=== PATIENT | male | born 1955 | race Caucasian/White ===

== ENCOUNTER 2018-07-28 09:26 | Outpatient (REF) | payer OTHER, SELFPAY ==
[2018-07-28 14:07] LABS: TSH (W/Ref FT4) 2.71 uIU/mL (0.358-3.74)
[2018-07-29 12:30] LABS: Hepatitis C Ab w Rflx HCV PCR Negative (NEGAT)
== END 2018-07-28 09:46 ==
LOC: NCHCN 09:26
PROVIDERS: Visit Provider Nurse Practitioner Family
DX: Z00.00 Encounter for general adult medical examination without abnormal findings (principal); M10.9 Gout, unspecified; R13.10 Dysphagia, unspecified; R42 Dizziness and giddiness; G47.62 Sleep related leg cramps; G47.00 Insomnia, unspecified; E66.9 Obesity, unspecified; M54.5 Low back pain; Z11.59 Encounter for screening for other viral diseases
CPT/HCPCS: 86803; 84443; 84550

== ENCOUNTER 2019-05-29 11:19 | Outpatient (REF) | payer OTHER, SELFPAY ==
[2019-05-29 13:38] LABS: ALT 38 U/L (16-63); AST 22 U/L (15-37); Alkaline Phosphatase 77 U/L (46-116); Anion Gap 8.1 mmol/L (3-11); BUN 17 mg/dL (7-18); Bilirubin, Total 0.3 mg/dL (0.2-1.0); CO2 27.9 mmol/L (21.0-32.0); CREATININE 0.94 mg/dL (0.70-1.30); Chloride 106 mmol/L (98-107); Glucose 112 mg/dL (70-100); Potassium 4.4 mmol/L (3.5-5.1); Sodium 142 mmol/L (136-145); TSH (W/Ref FT4) 2.99 uIU/mL (0.36-3.74); Total Protein 7.1 g/dL (6.4-8.2)
[2019-05-29 14:19] LABS: Calculated LDL 182 mg/dL; Cholesterol 260 mg/dL (50-200); HDL Cholesterol 41 mg/dL (40-60); Triglyceride 186 mg/dL (30-150)
== END 2019-05-29 11:39 ==
LOC: NCHCN 11:19
PROVIDERS: PCP Nurse Practitioner Family; Visit Provider Nurse Practitioner Family
DX: I10 Essential (primary) hypertension (principal); R94.6 Abnormal results of thyroid function studies; M10.9 Gout, unspecified
CPT/HCPCS: 80053; 80061; 84443; 84550

== ENCOUNTER 2020-12-12 18:46 | Outpatient (REF) | payer OTHER, SELFPAY ==
[2020-12-12 15:07] LABS: BUN 16 mg/dL (7-18); Calculated LDL 174 mg/dL (<100); Chloride 105 mmol/L (98-107); Cholesterol 224 mg/dL (<200); Glucose 104 mg/dL (74-106); HDL Cholesterol 38 mg/dL (40-60); Potassium 4.3 mmol/L (3.5-5.1); Sodium 142 mmol/L (136-145); TSH (W/Ref FT4) 2.77 uIU/mL (0.36-3.74); Triglyceride 60 mg/dL (<150)
[2020-12-12 18:12] LABS: Uric Acid 5.6 mg/dL (3.5-7.2)
== END 2020-12-12 18:47 | disposition home or self-care (01) ==
LOC: NCHCN 18:46
PROVIDERS: PCP Nurse Practitioner Family; Visit Provider Nurse Practitioner Family
DX: I10 Essential (primary) hypertension (principal); E66.9 Obesity, unspecified; R94.6 Abnormal results of thyroid function studies; M54.5 Low back pain; D12.6 Benign neoplasm of colon, unspecified; E78.5 Hyperlipidemia, unspecified; M10.9 Gout, unspecified; M19.90 Unspecified osteoarthritis, unspecified site
CPT/HCPCS: 80048; 80061; 84443; 84550

== ENCOUNTER 2021-12-08 11:21 | Outpatient (REF) | payer OTHER, SELFPAY ==
[2021-12-08 14:30] LABS: Anion Gap 8.8 mmol/L (3-11); BUN 18 mg/dL (7-18); CO2 25.2 mmol/L (21.0-32.0); CREATININE 1.1 mg/dL (0.70-1.30); Calcium 8.7 mg/dL (8.5-10.1); Calculated LDL 206 mg/dL (<100); Chloride 104 mmol/L (98-107); Cholesterol 270 mg/dL (<200); Glucose 94 mg/dL (74-106); HDL Cholesterol 44 mg/dL (40-60); Potassium 4.2 mmol/L (3.5-5.1); Sodium 138 mmol/L (136-145); TSH (W/Ref FT4) 3.85 uIU/mL (0.36-3.74); Triglyceride 103 mg/dL (<150)
[2021-12-08 14:51] LABS: FREE T4 0.91 ng/dL (0.76-1.46); Uric Acid 6.3 mg/dL (3.5-7.2)
== END 2021-12-08 11:22 | disposition home or self-care (01) ==
LOC: NCHCN 11:21
PROVIDERS: PCP Nurse Practitioner Family; Visit Provider Nurse Practitioner Family
DX: I10 Essential (primary) hypertension (principal); R94.6 Abnormal results of thyroid function studies; Z00.00 Encounter for general adult medical examination without abnormal findings; R20.0 Anesthesia of skin; K30 Functional dyspepsia; R42 Dizziness and giddiness; M10.9 Gout, unspecified; E78.5 Hyperlipidemia, unspecified
CPT/HCPCS: 80048; 80061; 84439; 84443; 84550

== ENCOUNTER 2022-06-15 14:55 | Outpatient (REF) | payer OTHER, SELFPAY ==
[2022-06-15 15:13] LABS: Calculated LDL 198 mg/dL (<100); Cholesterol 255 mg/dL (<200); HDL Cholesterol 44 mg/dL (40-60); Triglyceride 67 mg/dL (<150)
== END 2022-06-15 14:56 | disposition home or self-care (01) ==
LOC: NCHCN 14:55
PROVIDERS: PCP Nurse Practitioner Family; Visit Provider Nurse Practitioner Family
DX: I10 Essential (primary) hypertension (principal); E78.5 Hyperlipidemia, unspecified
CPT/HCPCS: 80061

== ENCOUNTER 2022-12-13 20:32 | Outpatient (REF) | payer MEDICARE, SELFPAY ==
[2022-12-13 15:26] LABS: ALT 29 U/L (16-63); AST 22 U/L (15-37); Albumin 4.3 g/dL (3.4-5.0); Alkaline Phosphatase 61 U/L (46-116); Anion Gap 9.4 mmol/L (3-11); BUN 17 mg/dL (7-18); Bilirubin, Total 0.4 mg/dL (0.2-1.0); CO2 25.6 mmol/L (21.0-32.0); CREATININE 0.9 mg/dL (0.70-1.30); Calcium 9.2 mg/dL (8.5-10.1); Calculated LDL 200 mg/dL (<100); Chloride 106 mmol/L (98-107); Cholesterol 265 mg/dL (<200); Estimated GFR 94.19 (mL/min/1.73m2); Glucose 108 mg/dL (74-106); HDL Cholesterol 56 mg/dL (40-60); Potassium 4.5 mmol/L (3.5-5.1); Sodium 141 mmol/L (136-145); TSH (W/Ref FT4) 2.28 uIU/mL (0.36-3.74); Total Protein 7.5 g/dL (6.4-8.2); Triglyceride 49 mg/dL (<150)
== END 2022-12-13 20:33 | disposition home or self-care (01) ==
LOC: NCHCN 20:32
PROVIDERS: PCP Nurse Practitioner Family; Visit Provider Nurse Practitioner Family
DX: I10 Essential (primary) hypertension (principal); R94.6 Abnormal results of thyroid function studies; K30 Functional dyspepsia; R55 Syncope and collapse; E66.9 Obesity, unspecified
CPT/HCPCS: 80053; 80061; 84443; 84550

== ENCOUNTER 2023-02-15 09:16 | Outpatient (REF) | payer MEDICARE, SELFPAY ==
[2023-02-15 15:05] LABS: ALT 33 U/L (16-63); AST 22 U/L (15-37); Albumin 4.2 g/dL (3.4-5.0); Alkaline Phosphatase 68 U/L (46-116); Anion Gap 7.5 mmol/L (3-11); BUN 15 mg/dL (7-18); Bilirubin, Total 0.5 mg/dL (0.2-1.0); CO2 28.5 mmol/L (21.0-32.0); Calculated LDL 113 mg/dL (<100); Chloride 107 mmol/L (98-107); Cholesterol 183 mg/dL (<200); Estimated GFR 83.01 (mL/min/1.73m2); Glucose 100 mg/dL (74-106); HDL Cholesterol 57 mg/dL (40-60); Potassium 5.3 mmol/L (3.5-5.1); Sodium 143 mmol/L (136-145); Total Protein 7.2 g/dL (6.4-8.2); Triglyceride 65 mg/dL (<150)
== END 2023-02-15 09:17 | disposition home or self-care (01) ==
LOC: NCHCN 09:16
PROVIDERS: PCP Nurse Practitioner Family; Visit Provider Nurse Practitioner Family
DX: I10 Essential (primary) hypertension (principal); E78.5 Hyperlipidemia, unspecified
CPT/HCPCS: 80053; 80061

== ENCOUNTER 2023-02-28 14:54 | Outpatient (REF) | payer MEDICARE, SELFPAY ==
[2023-02-28 16:54] LABS: Anion Gap 8.7 mmol/L (3-11); BUN 21 mg/dL (7-18); CO2 28.3 mmol/L (21.0-32.0); Chloride 108 mmol/L (98-107); Estimated GFR 83.01 (mL/min/1.73m2); Glucose 100 mg/dL (74-106); Potassium 5.1 mmol/L (3.5-5.1); Sodium 145 mmol/L (136-145)
== END 2023-02-28 14:55 | disposition home or self-care (01) ==
LOC: NCHCN 14:54
PROVIDERS: PCP Nurse Practitioner Family; Visit Provider Nurse Practitioner Family
DX: E87.5 Hyperkalemia (principal)
CPT/HCPCS: 80048

== ENCOUNTER 2024-01-06 10:44 | Outpatient (REF) | payer MEDICARE, SELFPAY ==
[2024-01-06 14:52] LABS: Calculated LDL 72 mg/dL (<100); Cholesterol 131 mg/dL (<200); HDL Cholesterol 51 mg/dL (40-60); TSH (W/Ref FT4) 2.74 uIU/mL (0.36-3.74); Triglyceride 41 mg/dL (<150)
== END 2024-01-06 10:45 | disposition home or self-care (01) ==
LOC: NCHCN 10:44
PROVIDERS: PCP Nurse Practitioner Family; Visit Provider Nurse Practitioner Family
DX: E78.5 Hyperlipidemia, unspecified (principal); R94.6 Abnormal results of thyroid function studies
CPT/HCPCS: 80061; 84443

== ENCOUNTER 2024-06-19 12:33 | Outpatient (REF) | payer MEDICARE, SELFPAY ==
[2024-06-19 17:04] LABS: ALT 31 U/L (16-63); AST 25 U/L (15-37); Alkaline Phosphatase 61 U/L (46-116); Anion Gap 7.2 mmol/L (3-11); BUN 16 mg/dL (7-18); Bilirubin, Total 0.55 mg/dL (0.2-1.0); CO2 26.8 mmol/L (21.0-32.0); CREATININE 0.9 mg/dL (0.70-1.30); Calcium 9.1 mg/dL (8.5-10.1); Calculated LDL 93 mg/dL (<100); Chloride 110 mmol/L (98-107); Cholesterol 160 mg/dL (<200); Estimated GFR 93.61 (mL/min/1.73m2); Glucose 96 mg/dL (74-106); HDL Cholesterol 56 mg/dL (40-60); Potassium 4.4 mmol/L (3.5-5.1); Sodium 144 mmol/L (136-145); Triglyceride 55 mg/dL (<150)
== END 2024-06-19 12:34 | disposition home or self-care (01) ==
LOC: NCHCN 12:33
PROVIDERS: PCP Nurse Practitioner Family; Visit Provider Nurse Practitioner Family
DX: E78.5 Hyperlipidemia, unspecified (principal)
CPT/HCPCS: 80053; 80061

== ENCOUNTER → 2024-08-02 08:18 | Outpatient (BNVA) | payer MEDICARE, SELFPAY | PROVIDERS: PCP Nurse Practitioner Family; Referring Provider Nurse Practitioner Family; Visit Provider Physical Therapy Assistant | DX: Z12.11 Encounter for screening for malignant neoplasm of colon (principal); Z80.0 Family history of malignant neoplasm of digestive organs ==

== ENCOUNTER 2024-08-20 08:29 | Day surgery (SDC) | payer MEDICARE, SELFPAY ==
[2024-08-20 08:53] VITALS: BP 153/81; PULSE 68; RESP 18; TEMP 36.5; O2SAT 97
[2024-08-20] MEDS: Lactated Ringers 1,000 ML 80 ML IV (09:09)
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
[2024-08-20 09:48] VITALS: BMI 28.4
[2024-08-20 10:25] VITALS: BP 130/84; PULSE 78; RESP 18; TEMP 36.4; O2SAT 95
--- NOTE | 2024-08-20 10:34 | COLE_ITS ---
Date of service: 08/20/24 Time of Service: 10:34 Colonoscopy Report Procedure Description: PROCEDURES PERFORMED: 1. Colonoscopy PREOPERATIVE DIAGNOSIS: Surveillance colonoscopy, family history POSTOPERATIVE DIAGNOSIS: pandiverticulosis, grade 1?2 internal hemorrhoids SURGEON: Angelina Maloney MD INDICATION for procedure: The patient is a 68-year-old man who has a family history of colon cancer in both parents who both from it. His last colonoscopy was reportedly normal. He does not have symptoms. FINDINGS: No polyps. There are diverticular changes present throughout the entire colon including the right?side. No inflammation and no stenotic areas. There are grade 2 internal hemorrhoids present at at least 1 column. SURVEILLANCE interval/FOLLOW-UP: 5 years because of the family history SPECIMENS: None EBL: Minimal COMPLICATIONS: None QUALITY of prep: Excellent Procedure in detail: The patient gave written consent and was in agreement with the indications, the potential risks as well as the benefits of the procedure. They were taken to the endoscopy suite and laid in the left lateral decubitus position. A timeout was performed and anesthesia was administered which was tolerated well. I started the procedure. Digital rectal and visual examination was performed and grossly within normal limits. A well-lubricated flexible colonoscope was then introduced and passed without any notable difficulty all the way to the cecum identified by the ileocecal valve and the appendiceal orifice. The scope was then slowly withdrawn with the above-noted findings. The patient tolerated the procedure well and was taken to the PACU in hemodynam ically stable condition.
--- NOTE | 2024-08-20 10:36 | W.PM.DSUDISC ---
Date of service: 08/20/24 Discharge Plan Disposition Patient Disposition: Home Condition: Good Discharge Details Attending Provider: Clarence Maloney Primary Care Provider: Zoie Toscano Home Meds and New Rx's Prescriptions: No Action atorvastatin 20 mg tablet 20 mg PO QPM bisacodyl [Dulcolax (bisacodyl)] 5 mg tablet,delayed release (DR/EC) 5 mg PO ONCE Qty: 4 0RF Rx Instructions: Take per colonoscopy instructions provided by ordering providers office polyethylene glycol 3350 17 gram/dose powder 17 g PO ONCE Qty: 238 0RF Rx Instructions: Take per colonoscopy instructions provided by ordering providers office aspirin [Aspir-81] 81 MG tablet,delayed release (DR/EC) 81 mg PO DAILY Discharge Instructions Additional Instructions: Findings: No polyps were found. No findings of concern. You do have diverticular changes present throughout your entire colon. This is a common, benign condition and there is nothing you need to do about any of it. You should repeat a colonoscopy in 5 years because your family history. Activity:: Activity as Tolerated Diet:: As Tolerated DS: Diagnosis Discharge Diagnosis (1) Colon cancer screening: Status: Acute
[2024-08-20 10:48] VITALS: BP 120/85; PULSE 67; RESP 18; TEMP 36.6; O2SAT 95
--- NOTE | 2024-08-20 11:17 | W.ANESPOSTOP ---
Postoperative Evaluation Date, Time and Location Date Performed: 08/20/24 Time Performed: 10:32 Patient Location: Day Surgery Unit Vital Signs Most Recent Imported Vital Signs: Most Recent Vital Signs Temp Pulse Resp BP Pulse Ox 36.6 C 67 18 120/85 95 08/20/24 10:48 08/20/24 10:48 08/20/24 10:48 08/20/24 10:48 08/20/24 10:48 Pain Score Most Recent Pain Score: Most Recent Pain Score Pain Level 0 08/20/24 10:48 Assessment Mental Status: Awake (Alert & Oriented to Patient Baseline) Airway and Respiratory Function: Patent airway with normal (patient baseline) respiratory exam Cardiovascular Function: Hemodynamically Stable Hydration Status: Adequately Hydrated Nausea & Vomiting: No Nausea or Vomiting Pain: Pt. Denies Any Pain Peripheral Nerve Block: Patient did not receive a nerve block
== END 2024-08-20 11:07 | disposition home or self-care (01) ==
PROVIDERS: PCP Nurse Practitioner Family; Visit Provider Student in an Organized Health Care Education/Training Program
PROC: 0DJD8ZZ Inspection of Lower Intestinal Tract, Via Natural or Artificial Opening Endoscopic (ICD-10-PCS; CPT 45378; principal; 2024-08-20 09:45)
DX: Z12.11 Encounter for screening for malignant neoplasm of colon (principal); K57.30 Diverticulosis of large intestine without perforation or abscess without bleeding; Z80.0 Family history of malignant neoplasm of digestive organs; K64.0 First degree hemorrhoids
CPT/HCPCS: G0105; 00123; J2704

== ENCOUNTER 2024-12-20 09:23 | Outpatient (REF) | payer MEDICARE, SELFPAY ==
[2024-12-20 17:41] LABS: Calculated LDL 94 mg/dL (<100); Cholesterol 162 mg/dL (<200); HDL Cholesterol 61 mg/dL (>or=40); Triglyceride 35 mg/dL (<150)
== END 2024-12-20 09:24 | disposition home or self-care (01) ==
LOC: NCHCN 09:23
PROVIDERS: PCP Nurse Practitioner Family; Visit Provider Nurse Practitioner Family
DX: E78.5 Hyperlipidemia, unspecified (principal)
CPT/HCPCS: 80061